=== PATIENT | female | born 1955 | race Hispanic/Latino ===

== ENCOUNTER 2018-06-02 17:54 | Emergency (ER) | payer SELFPAY ==
[2018-06-02] MEDS ORDERED: IPRATROPIUM BROM 0.5MG/2.5ML ONE (18:18)
[2018-06-02] MEDS ORDERED: ALBUTEROL 2.5 MG/3 ML NEB SOL ONE ×2 (18:18→19:30)
[2018-06-02] MEDS ORDERED: HYDROCODONE/CHLORPHEN 5 ML/OSYR ONE (18:23)
--- NOTE | 2018-06-02 19:16 | RAD REPORT ---
EXAM DESCRIPTION: [facility] Pa And Lat (2 Views)06/02/2018 7:09 pm CLINICAL HISTORY: Cough COMPARISON: 2014 FINDINGS: Mild reticulonodular opacities are suspected within the left lower lobe. The right lung ap pears clear. . The heart is normal size IMPRESSION: Mild reticulonodular opacities suspected within the left lower lobe may indicate an atyp ical infection
--- NOTE | 2018-06-02 20:29 | EDPHYS ---
Physician Documentation [facility] Name: Bernadette Abrams Age: 62 yrs Sex: Female : 1955 Arrival Date: 06/02/2018 Time: 17:58 Bed 17 Private MD: ED Physician Hussein Lowe HPI: 06/02 19:00 This 62 yrs old Female presents to ER via Ambulatory with complaints of Cough, pm1 Vomiting, Breathing Difficulty. 19:00 The patient or guardian reports cough, with productive sputum, Clear. Onset: The pm1 symptoms/episode began/occurred yesterday. Associated signs and symptoms: Pertinent positives: posttussive vomiting, Pertinent negatives: chest pain, ear ache, fever, nausea, rhinorrhea, sore throat, vomiting. The patient has not experienced similar symptoms in the past. The patient has not recently seen a physician. Patient with onset of cough yesterday. Patient reports coughing episodes that cause her to occasionally vomit. Patient with complaints of some shortness of breath. Patient smokes. 45 year history of smoking. No fever. No chest pain. Historical: - Allergies: 18:05 No Known Allergies; aj - Home Meds: 18:05 None [Active]; aj - PMHx: 18:05 Hypertension; aj - PSHx: 18:05 Cholecystectomy; aj - Immunization history:: Adult Immunizations up to date. - Social history:: Smoking status: Patient uses tobacco products, denies chronic smoking, but will smoke occasionally, Patient uses alcohol, only on a social basis. - Ebola Screening: : Patient negative for fever greater than or equal to 101.5 degrees Fahrenheit, and additional compatible Ebola Virus Disease symptoms Patient denies exposure to infectious person Patient denies travel to an Ebola-affected area in the 21 days before illness onset No symptoms or risks identified at this time. ROS: 19:00 Constitutional: Negative for fever, chills, and weight loss, Eyes: Negative for injury, pm1 pain, redness, and discharge, ENT: Negative for injury, pain, and discharge, Neck: Negative for injury, pain, and swelling, Cardiovascular: Negative for chest pain, palpitations, and edema. 19:00 Abdomen/GI: Negative for abdominal pain, nausea, vomiting, diarrhea, and constipation, Back: Negative for injury and pain, : Negative for injury, bleeding, discharge, and swelling, MS/Extremity: Negative for injury and deformity, Skin: Negative for injury, rash, and discoloration. 19:00 Neuro: Negative for headache, weakness, numbness, tingling, and seizure. 19:00 Respiratory: Positive for cough, with clear sputum, shortness of breath, Negative for wheezing. Exam: 19:00 Constitutional: This is a well developed, well nourished patient who is awake, alert, pm1 and in no acute distress. Head/Face: Normocephalic, atraumatic. Eyes: Pupils equal round and reactive to light, extra-ocular motions intact. Lids and lashes normal. Conjunctiva and sclera are non-icteric and not injected. Cornea within normal limits. Periorbital areas with no swelling, redness, or edema. ENT: Nares patent. No nasal discharge, no septal abnormalities noted. Tympanic membranes are normal and external auditory canals are clear. Oropharynx with no redness, swelling, or masses, exudates, or evidence of obstruction, uvula midline. Mucous membranes moist. Neck: Trachea midline, no thyromegaly or masses palpated, and no cervical lymphadenopathy. Supple, full range of motion without nuchal rigidity, or vertebral point tenderness. No Meningismus. Chest/axilla: Normal chest wall appearance and motion. Nontender with no deformity. No lesions are appreciated. Cardiovascular: Regular rate and rhythm with a normal S1 and S2. No gallops, murmurs, or rubs. Normal PMI, no JVD. No pulse deficits. 19:00 Abdomen/GI: Soft, non-tender, with normal bowel sounds. No distension or tympany. No guarding or rebound. No evidence of tenderness throughout. Back: No spinal tenderness. No costovertebral tenderness. Full range of motion. Skin: Warm, dry with normal turgor. Normal color with no rashes, no lesions, and no evidence of cellulitis. MS/ Extremity: Pulses equal, no cyanosis. Neurovascular intact. Full, normal range of motion. 19:00 Respiratory: the patient does not display signs of respiratory distress, Respirations: normal, Breath sounds: bronchial sounds, that are mild. 19:00 Neuro: Orientation: is normal, Motor: moves all fours. Vital Signs: 18:05 BP 180 / 92; Pulse 84; Resp 20; Temp 98.8; Pulse Ox 95% on R/A; Weight 90.26 kg; Height aj 5 ft. 1 in. (154.94 cm); 19:16 BP 123 / 77; Pulse 94; Resp 18; Pulse Ox 93% on R/A; Pain 0/10; mg2 20:28 BP 124 / 76; Pulse 88; Resp 18; Pulse Ox 91% on R/A; Pain 0/10; mg2 20:44 BP 128 / 77; Pulse 89; Resp 18; Temp 98.9; Pulse Ox 95% on R/A; Pain 0/10; mg2 18:05 Body Mass Index 37.60 (90.26 kg, 154.94 cm) aj MDM: 17:59 Patient medically screened. pm1 20:21 ED course: Monitoring patient's oxygen saturation and they are running between 93-95%. pm1 Patient with 45 year history of smoking. Patient's shortness of breath resolved with treatments and patient feels better with the medications given in the ER. Possibly patient's baseline with underlying undiagnosed COPD. Offered lab work and admission to the patient. Patient does not want the lab work and to be hospitalized. Therefore I will give the patient antibiotics in the ER and discharge home with antibiotics and breathing treatment. Patient educated on return precautions. 21:00 Data reviewed: vital signs. Data interpreted: Pulse oximetry: on room air is 95 %. pm1 Interpretation: normal. Counseling: I had a detailed discussion with the patient and/or guardian regarding: the historical points, exam findings, and any diagnostic results supporting the discharge/admit diagnosis, radiology results, the need for outpatient follow up, to return to the emergency department if symptoms worsen or persist or if there are any questions or concerns that arise at home. 06/02 18:16 Order name: Chest Pa And Lat (2 Views) XRAY; Complete Time: 19:19 pm1 Administered Medications: 18:17 Drug: AtroVENT Aerosol 0.5 mg Route: Inhalation; mg2 20:44 Follow up: Response: No adverse reaction; Marked relief of symptoms mg2 18:17 Drug: Albuterol 2.5 mg Route: Inhalation; mg2 20:43 Follow up: Response: No adverse reaction; Marked relief of symptoms mg2 18:21 Drug: Tussionex Pennkinetic ER 5 ml Route: PO; mg2 20:43 Follow up: Response: No adverse reaction; Marked relief of symptoms mg2 19:33 Drug: Albuterol 2.5 mg Route: Inhalation; mg2 20:43 Follow up: Response: No adverse reaction; Marked relief of symptoms mg2 20:43 Drug: Rocephin (cefTRIAXone) 1 grams Route: IM; Site: right gluteus; mg2 20:44 Follow up: Response: No adverse reaction; Medication administered at discharge. mg2 20:43 Drug: AZITHromycin 500 mg Route: PO; mg2 20:44 Follow up: Response: No adverse reaction; Medication administered at discharge. mg2 Disposition: 06/02/18 20:29 Discharged to Home. Impression: Pneumonia, unspecified organism. - Condition is Stable. - Discharge Instructions: Community-Acquired Pneumonia, Adult. - Prescriptions for Zithromax Z- Ghulam 250 mg Oral Tablet - take 1 tablet by ORAL route as directed for 5 days Day 1 - take two (2) tablets one time. Day 2, 3, 4 , 5 take one (1) tablet once daily.; 6 tablet. Albuterol Sulfate 90 mcg/actuation - inhale 1-2 puff by INHALATION route every 4-6 hours; 1 Inhaler. Guaifenesin AC 10- 100 mg/5 mL Oral Liquid - take 10 milliliter by ORAL route every 4 hours As needed; 240 milliliter. Augmentin 875- 125 mg Oral Tablet - take 1 tablet by ORAL route every 12 hours for 10 days; 20 tablet. - Medication Reconciliation Form, Thank You Letter, Antibiotic Education, Prescription Opioid Use form. - Follow up: Emergency Department; When: As needed; Reason: Worsening of condition. Follow up: Private Physician; When: 2 - 3 days; Reason: Recheck today's complaints, Continuance of care, Re-evaluation by your physician. - Problem is new. - Symptoms have improved. Addendum: 06/06/2018 01:57 Co-signature as Attending Physician, Hussein Lowe MD. r n Signatures: Dispatcher [employer] Karlee Marin RN RN aj Nieto, Roman, MD MD rn Marinas, Patrick, [employer] pm1 Ronnie Green RN RN mg2 Corrections: (The following items were deleted from the chart) 06/02 20:48 20:29 06/02/2018 20:29 Discharged to Home. Impression: Pneumonia, unspecified organism. mg2 Condition is Stable. Forms are Medication Reconciliation Form, Thank You Letter, Antibiotic Education, Prescription Opioid Use. Follow up: Emergency Department; When: As needed; Reason: Worsening of condition. Follow up: Private Physician; When: 2 - 3 days; Reason: Recheck today's complaints, Continuance of care, Re-evaluation by your physician. Problem is new. Symptoms have improved. pm1
--- NOTE | 2018-06-02 20:29 | ER ---
Nurse's Notes [facility] Name: Bernadette Abrams Age: 62 yrs Sex: Female : 1955 Arrival Date: 06/02/2018 Time: 17:58 Bed 17 Private MD: Diagnosis: Pneumonia, unspecified organism Presentation: 06/02 18:03 Presenting complaint: Patient states: Cough since last night, causing vomiting. Patient aj reports taking Tylenol cold at 1200 today. Transition of care: patient was not received from another setting of care. Onset of symptoms was June 01, 2018. Risk Assessment: Do you want to hurt yourself or someone else? Patient reports no desire to harm self or others. Initial Sepsis Screen: Does the patient meet any 2 criteria? No. Patient's initial sepsis screen is negative. Does the patient have a suspected source of infection? No. Patient's initial sepsis screen is negative. Care prior to arrival: None. 18:03 Method Of Arrival: Ambulatory aj 18:03 Acuity: ESTEPHANIA 4 aj Triage Assessment: 18:05 General: Appears in no apparent distress. ill, Behavior is calm, cooperative, aj appropriate for age. Pain: Denies pain. Neuro: Level of Consciousness is awake, alert, obeys commands, Oriented to person, place, time, situation, Appropriate for age. Respiratory: Reports cough that is persistent causes vomiting Airway is patent Respiratory effort is even, unlabored, Respiratory pattern is regular, symmetrical. GI: Reports vomiting with cough. Derm: Skin is intact, is healthy with good turgor, Skin is pink, warm \T\ dry. normal. Historical: - Allergies: 18:05 No Known Allergies; aj - Home Meds: 18:05 None [Active]; aj - PMHx: 18:05 Hypertension; aj - PSHx: 18:05 Cholecystectomy; aj - Immunization history:: Adult Immunizations up to date. - Social history:: Smoking status: Patient uses tobacco products, denies chronic smoking, but will smoke occasionally, Patient uses alcohol, only on a social basis. - Ebola Screening: : Patient negative for fever greater than or equal to 101.5 degrees Fahrenheit, and additional compatible Ebola Virus Disease symptoms Patient denies exposure to infectious person Patient denies travel to an Ebola-affected area in the 21 days before illness onset No symptoms or risks identified at this time. Screenin:24 Abuse screen: Denies threats or abuse. Denies injuries from another. Nutritional mg2 screening: No deficits noted. Tuberculosis screening: No symptoms or risk factors identified. Fall Risk None identified. Assessment: 18:25 General: Appears in no apparent distress. uncomfortable, Behavior is calm, cooperative. mg2 Pain: Denies pain. Neuro: Level of Consciousness is awake, alert, obeys commands, Oriented to person, place, time, situation. Cardiovascular: Capillary refill < 3 seconds Patient's skin is warm and dry. Respiratory: Reports cough that is productive, Airway is patent Respiratory effort is even, unlabored, Respiratory pattern is regular, symmetrical. GI: No signs and/or symptoms were reported involving the gastrointestinal system. : No signs and/or symptoms were reported regarding the genitourinary system. EENT: No signs and/or symptoms were reported regarding the EENT system. Derm: Skin is intact, Skin is pink, warm \T\ dry. normal. Musculoskeletal: Circulation, motion, and sensation intact. Vital Signs: 18:05 BP 180 / 92; Pulse 84; Resp 20; Temp 98.8; Pulse Ox 95% on R/A; Weight 90.26 kg; Height aj 5 ft. 1 in. (154.94 cm); 19:16 BP 123 / 77; Pulse 94; Resp 18; Pulse Ox 93% on R/A; Pain 0/10; mg2 20:28 BP 124 / 76; Pulse 88; Resp 18; Pulse Ox 91% on R/A; Pain 0/10; mg2 20:44 BP 128 / 77; Pulse 89; Resp 18; Temp 98.9; Pulse Ox 95% on R/A; Pain 0/10; mg2 18:05 Body Mass Index 37.60 (90.26 kg, 154.94 cm) ED Course: 17:58 Patient arrived in ED. mr 17:59 Ajith Casillas NP is PHCP. pm1 17:59 Hussein Lowe MD is Attending Physician. pm1 18:04 Triage completed. aj 18:05 Arm band placed on left wrist. Patient placed in an exam room. aj 18:16 Ronnie Green, RN is Primary Nurse. mg2 18:26 Patient has correct armband on for positive identification. Bed in low position. Call mg2 light in reach. Side rails up X 1. Pulse ox on. NIBP on. 19:08 X-ray completed. Patient tolerated procedure well. kp1 19:09 Chest Pa And Lat (2 Views) XRAY In Process Unspecified. EDMS 20:45 No provider procedures requiring assistance completed. Patient did not have IV access mg2 during this emergency room visit. Administered Medications: 18:17 Drug: AtroVENT Aerosol 0.5 mg Route: Inhalation; mg2 20:44 Follow up: Response: No adverse reaction; Marked relief of symptoms mg2 18:17 Drug: Albuterol 2.5 mg Route: Inhalation; mg2 20:43 Follow up: Response: No adverse reaction; Marked relief of symptoms mg2 18:21 Drug: Tussionex Pennkinetic ER 5 ml Route: PO; mg2 20:43 Follow up: Response: No adverse reaction; Marked relief of symptoms mg2 19:33 Drug: Albuterol 2.5 mg Route: Inhalation; mg2 20:43 Follow up: Response: No adverse reaction; Marked relief of symptoms mg2 20:43 Drug: Rocephin (cefTRIAXone) 1 grams Route: IM; Site: right gluteus; mg2 20:44 Follow up: Response: No adverse reaction; Medication administered at discharge. mg2 20:43 Drug: AZITHromycin 500 mg Route: PO; mg2 20:44 Follow up: Response: No adverse reaction; Medication administered at discharge. mg2 Outcome: 20:29 Discharge ordered by . pm1 20:45 Discharged to home ambulatory, with family. mg2 20:45 Condition: stable 20:45 Discharge instructions given to patient, family, Instructed on discharge instructions, follow up and referral plans. medication usage, Demonstrated understanding of instructions, follow-up care, medications, Prescriptions given X 4. 20:48 Patient left the ED. mg2 Signatures: Dispatcher [employer] EDKarlee Soria, Tavia Duval RN, Patrick, [employer] TECHNICIAN [employer] TECHNICIAN pm1 June Weiss kp1 Ronnie Green RN RN mg2
[2018-06-02] MEDS ORDERED: AZITHROMYCIN 250 MG TAB ONE (20:38)
[2018-06-02] MEDS ORDERED: CEFTRIAXONE 1000 MG/VIAL ONE (20:39)
[2018-06-02] MEDS ORDERED: WATER FOR INJ,STERILE 10 ML ONE (20:39)
== END 2018-06-02 20:48 | disposition home or self-care (01) ==
LOC: ER 17:54
DX: J18.9 Pneumonia, unspecified organism (principal); I10 Essential (primary) hypertension; Z72.0 Tobacco use
CPT/HCPCS: 71046; 96372; 99284

== ENCOUNTER 2021-06-02 15:01 | Inpatient (IN) | payer SELFPAY ==
[2021-06-02 17:17] LABS: Urine Blood Trace-intact (Negative); Urine Glucose Negative (Negative); Urine Protein 2+ (Negative)
[2021-06-02] MEDS ORDERED: CASIRIVIMAB/IMDEVIMAB 10 ML VIAL ONE (17:59)
[2021-06-02] MEDS ORDERED: NA CHLORIDE 0.9% 250 ML ONE (17:59)
[2021-06-02 18:16] LABS: Absolute Lymphocytes (CBC) 0.4 K/uL (0.7-4.9); Basophils % 0.4 % (0-1.3); Hematocrit 40.1 % (36.0-45.0); Lymphocytes % 7.4 % (15.3-44.8); MPV 8.7 fL (7.6-11.3); RBC Red Blood Cell Count 4.63 M/uL (3.86-4.86)
[2021-06-02 18:17] LABS: Protime INR 1.17
[2021-06-02] MEDS ORDERED: ONDANSETRON 4 MG/2 ML VIAL ONE (18:27)
[2021-06-02] MEDS ORDERED: METHYLPREDNISOLONE 125 MG INJ ONE (18:27)
[2021-06-02] MEDS ORDERED: ASPIRIN EC 81 MG TAB PO ONE (18:27)
[2021-06-02] MEDS ORDERED: IBUPROFEN 200 MG TAB PO ONE (18:27)
[2021-06-02] MEDS ORDERED: IBUPROFEN 400 MG TAB ONE (18:28)
[2021-06-02] MEDS ORDERED: NA CHLORIDE 0.9% 1,000 ML ONE (18:28)
[2021-06-02] MEDS ORDERED: FAMOTIDINE 20 MG/2 ML VIAL IV ONE (18:28)
[2021-06-02] MEDS ORDERED: AZITHROMYCIN 250 MG TAB ONE (18:28)
[2021-06-02 18:29] LABS: ALT/SGPT 33 U/L (12-78); AST/SGOT 28 U/L (15-37); Albumin 3.3 g/dL (3.4-5.0); Alkaline Phosphatase 80 U/L (45-117); BUN Blood Urea Nitrogen 12 mg/dL (7-18); Bicarbonate 26 mmol/L (21-32); Bilirubin Direct 0.3 mg/dL (0-0.2); Bilirubin Total 0.7 mg/dL (0.2-1.0); Ferritin 958.4 ng/mL (8-388); Glucose Level 97 mg/dL (74-106); Magnesium 2.3 mg/dL (1.8-2.4); NT PRO-BNP 138 pg/mL (<125); Protein, Total 8.2 g/dL (6.4-8.2); Sodium Level 122 mmol/L (136-145); Troponin (Emerg Dept Use Only) < 0.02 ng/mL (0.0-0.045)
[2021-06-02] MEDS ORDERED: ASPIRIN 81 MG CHEWABLE TABLET ONE (18:29)
--- NOTE | 2021-06-02 18:47 | EDPHYS ---
Physician Documentation [facility] Name: Bernadette Abrams Age: 65 yrs Sex: Female : 1955 Arrival Date: 06/02/2021 Time: 15:03 Bed 23 Private MD: ED Physician Danis Markham HPI: 06/02 17:25 This 65 yrs old Female presents to ER via Wheelchair with complaints of Fever, lisha chills. 17:25 The patient reports fever, that was measured at 100 degrees Fahrenheit. Onset: The lisha symptoms/episode began/occurred 8 day(s) ago. Modifying factors: there are no obvious modifying factors. Associated signs and symptoms: Pertinent positives: chills, cough, diarrhea. Severity of symptoms: At their worst the symptoms were mild in the emergency department the symptoms are unchanged. The patient has not experienced similar symptoms in the past. Historical: - Allergies: 16:02 No Known Allergies; kg - Home Meds: 16:02 None [Active]; kg - PMHx: 16:02 Hypertension; kg - PSHx: 16:02 Cholecystectomy; kg - Immunization history:: Adult Immunizations up to date, Client reports receiving the 1st dose of the Covid vaccine, May 20, 2021 Moderna. - Social history:: Smoking status: Patient reports the use of cigarette tobacco products, denies chronic smoking, but will smoke occasionally. ROS: 17:26 Eyes: Negative for injury, pain, redness, and discharge, ENT: Negative for injury, lisha pain, and discharge, Neck: Negative for injury, pain, and swelling, Cardiovascular: Negative for chest pain, palpitations, and edema, Abdomen/GI: Negative for abdominal pain, nausea, vomiting, diarrhea, and constipation, Back: Negative for injury and pain, : Negative for injury, bleeding, discharge, and swelling, MS/Extremity: Negative for injury and deformity, Skin: Negative for injury, rash, and discoloration, Neuro: Negative for headache, weakness, numbness, tingling, and seizure, Psych: Negative for depression, anxiety, suicide ideation, homicidal ideation, and hallucinations, Allergy/Immunology: Negative for hives, rash, and allergies, Endocrine: Negative for neck swelling, polydipsia, polyuria, polyphagia, and marked weight changes, Hematologic/Lymphatic: Negative for swollen nodes, abnormal bleeding, and unusual bruising. 17:26 Constitutional: Positive for fever. 17:26 Respiratory: Positive for cough, "sounds productive". 17:26 Abdomen/GI: Positive for LARGE VENTRAL HERNIA. Exam: 17:26 Head/Face: Normocephalic, atraumatic. Eyes: Pupils equal round and reactive to light, lisha extra-ocular motions intact. Lids and lashes normal. Conjunctiva and sclera are non-icteric and not injected. Cornea within normal limits. Periorbital areas with no swelling, redness, or edema. ENT: Nares patent. No nasal discharge, no septal abnormalities noted. Tympanic membranes are normal and external auditory canals are clear. Oropharynx with no redness, swelling, or masses, exudates, or evidence of obstruction, uvula midline. Mucous membranes moist. Neck: Trachea midline, no thyromegaly or masses palpated, and no cervical lymphadenopathy. Supple, full range of motion without nuchal rigidity, or vertebral point tenderness. No Meningismus. Chest/axilla: Normal chest wall appearance and motion. Nontender with no deformity. No lesions are appreciated. Cardiovascular: Regular rate and rhythm with a normal S1 and S2. No gallops, murmurs, or rubs. Normal PMI, no JVD. No pulse deficits. Back: No spinal tenderness. No costovertebral tenderness. Full range of motion. Female : Normal external genitalia. Skin: Warm, dry with normal turgor. Normal color with no rashes, no lesions, and no evidence of cellulitis. MS/ Extremity: Pulses equal, no cyanosis. Neurovascular intact. Full, normal range of motion. Neuro: Awake and alert, GCS 15, oriented to person, place, time, and situation. Cranial nerves II-XII grossly intact. Motor strength 5/5 in all extremities. Sensory grossly intact. Cerebellar exam normal. Normal gait. Psych: Awake, alert, with orientation to person, place and time. Behavior, mood, and affect are within normal limits. 17:26 Constitutional: The patient appears febrile. 17:26 Respiratory: the patient does not display signs of respiratory distress, Respirations: no acute changes, is not noted, Breath sounds: bronchial sounds, that are mild, rhonchi, that are mild, Respiratory rate: 96 Vital Signs: 16:01 BP 130 / 71; Pulse 96; Resp 20; Temp 99.8(O); Pulse Ox 96% on R/A; Weight 81.65 kg (R); kg Height 5 ft. 1 in. (154.94 cm) (R); Pain 0/10; 18:30 BP 103 / 57; Pulse 78; Resp 16; Pulse Ox 100% on R/A; zb 19:00 BP 97 / 62; Pulse 72; Resp 18; Pulse Ox 100% on R/A; zb 20:00 BP 103 / 50; Pulse 71; Resp 16; Pulse Ox 98% on R/A; zb 21:00 BP 104 / 58; Pulse 69; Resp 20; Pulse Ox 98% on R/A; zb 22:02 BP 105 / 70; Pulse 59; Resp 18; Pulse Ox 95% on R/A; zb 23:00 BP 105 / 67; Pulse 51; Resp 18; Pulse Ox 95% on R/A; zb 16:01 Body Mass Index 34.01 (81.65 kg, 154.94 cm) kg Zenon Coma Score: 17:26 Eye Response: spontaneous(4). Verbal Response: oriented(5). Motor Response: obeys lisha commands(6). Total: 15. MDM: 17:09 Patient medically screened. lisha 17:26 Differential diagnosis: viral Infection, bacterial infection, URI, bronchitis, lisha pneumonia UTI, gastroenteritis. Differential Diagnosis: Bronchitis Influenza Upper Respiratory Infection Pharyngitis Allergic Rhinitis Pneumonia. Data reviewed: vital signs, nurses notes, lab test result(s), EKG, radiologic studies, plain films. Data interpreted: satellite project site monitor: rate is 96 beats/min, rhythm is regular, Pulse oximetry: on room air. Test interpretation: by ED physician or midlevel provider: ECG, plain radiologic studies. Counseling: I had a detailed discussion with the patient and/or guardian regarding: the historical points, exam findings, and any diagnostic results supporting the discharge/admit diagnosis, lab results, radiology results. 06/02 16:06 Order name: Flu; Complete Time: 18:23 kg 06/02 17:17 Order name: Urine Dipstick-Ancillary; Complete Time: 18:23 EDMS 06/02 17:25 Order name: Basic Metabolic Panel lisha 06/02 17:25 Order name: CBC with Diff [facility] 06/02 17:25 Order name: LFT's lisha 06/02 17:25 Order name: Magnesium [facility] 06/02 17:25 Order name: NT PRO-BNP [facility] 06/02 17:25 Order name: PT-INR [facility] 06/02 17:25 Order name: Troponin (emerg Dept Use Only) [facility] 06/02 17:25 Order name: Blood Culture Adult (2) [facility] 06/02 17:25 Order name: CRP; Complete Time: 18:40 [facility] 06/02 17:25 Order name: Ferritin; Complete Time: 18:40 [facility] 06/02 17:25 Order name: Urine Culture [facility] 06/02 17:25 Order name: Basic Metabolic Panel; Complete Time: 18:40 EDKS 06/02 17:25 Order name: CBC with Automated Diff; Complete Time: 18:23 EDKS 06/02 17:25 Order name: Liver (Hepatic) Function; Complete Time: 18:40 EDKS 06/02 17:25 Order name: Magnesium; Complete Time: 18:40 EDKS 06/02 17:25 Order name: NT PRO-BNP; Complete Time: 18:40 EDKS 06/02 17:25 Order name: Protime (+INR); Complete Time: 18:23 EDKS 06/02 17:25 Order name: Troponin (Emerg Dept Use Only); Complete Time: 18:40 EDKS 06/02 17:36 Order name: SARS-COV-2 RT PCR; Complete Time: 18:23 EDKS 06/02 18:42 Order name: Urine Osmolality [facility] 06/02 18:42 Order name: Osmolality, Serum [facility] 06/02 18:42 Order name: Urine Sodium Random [facility] 06/02 18:43 Order name: Osmolality, Urine; Complete Time: 00:01 EDKS 06/02 18:43 Order name: Osmolality, Serum; Complete Time: 00:01 EDKS 06/02 18:43 Order name: UR SODIUM; Complete Time: 00:01 EDKS 06/02 18:43 Order name: Phosphorus [facility] 06/02 18:44 Order name: Phosphorus; Complete Time: 20:34 EDKS 06/02 17:25 Order name: XRAY Chest (1 view); Complete Time: 20:34 [facility] 06/02 17:25 Order name: EKG; Complete Time: 17:26 [facility] 06/02 17:25 Order name: Cardiac monitoring; Complete Time: 20:30 [facility] 06/02 17:25 Order name: EKG - Nurse/Tech; Complete Time: 20:30 [facility] 06/02 17:25 Order name: IV Saline Lock; Complete Time: 18:16 [facility] 06/02 17:25 Order name: Labs collected and sent; Complete Time: 18:16 [facility] 06/02 17:25 Order name: O2 Per Protocol; Complete Time: 18:17 [facility] 06/02 17:25 Order name: O2 Sat Monitoring; Complete Time: 18:17 [facility] 06/03 03:18 Order name: CBC with Automated Diff EDMS 06/03 03:24 Order name: D-Dimer EDMS 06/03 04:19 Order name: Comprehensive Metabolic Panel EDMS 06/03 04:19 Order name: Lipid Profile EDMS 06/03 04:19 Order name: C-Reactive Protein EDMS 06/03 04:19 Order name: T4 Free EDMS 06/03 04:19 Order name: Magnesium EDMS 06/03 04:19 Order name: Thyroid Stimulating Hormone EDMS 06/03 04:19 Order name: Ferritin EDMS 06/03 13:19 Order name: Gram Stain--Aerobic Bottle EDMS Administered Medications: 18:16 Drug: NS 0.9% 1000 ml Route: IV; Rate: 1 bolus; Site: right antecubital; 06/03 00:04 Follow up: Response: No adverse reaction; IV Status: Completed infusion; IV Intake: zb 1000ml 06/02 18:16 Drug: Pepcid (famotidine) 40 mg Route: IVP; Site: right antecubital; 06/03 00:04 Follow up: Response: No adverse reaction 06/02 18:16 Drug: Motrin (ibuprofen) 600 mg Route: PO; zb 06/03 00:04 Follow up: Response: No adverse reaction; Marked relief of symptoms z 06/02 18:16 Drug: Zofran (Ondansetron) 4 mg Route: IVP; Site: right antecubital; 06/03 00:02 Follow up: Response: No adverse reaction; Nausea is decreased z 06/02 18:16 Drug: Aspirin Chewable Tablet 324 mg Route: PO; 06/03 00:02 Follow up: Response: No adverse reaction 06/02 18:16 Drug: Zithromax (azithromycin) 500 mg Route: PO; zb 23:52 Follow up: Response: No adverse reaction zb 18:16 Drug: SOLU-Medrol (methylPrednisoLONE) 125 mg Route: IVP; Site: right antecubital; zb 23:51 Follow up: Response: No adverse reaction zb 18:40 Drug: REGEN-COV Dose Pack 120 mg/mL-120 mg/mL (EUA) 1 vials Route: IV; Rate: per iw protocol; Site: right antecubital; 19:16 Follow up: Response: No adverse reaction; IV Status: Completed infusion; IV Intake: zb 250ml 20:29 Drug: Rocephin (cefTRIAXone) 1 grams Route: IV; Rate: per protocol; Site: right zb antecubital; 23:51 Follow up: Response: No adverse reaction; IV Status: Completed infusion; IV Intake: 5ml zb 20:30 Drug: Potassium Effervescent Tablet 25 mEq Route: PO; zb 23:51 Follow up: Response: No adverse reaction zb 20:30 Drug: NS 0.9% with KCl 20 mEq/L 1000 ml Route: IV; Rate: 75 ml/hr; Site: right zb antecubital; 23:51 Follow up: Response: No adverse reaction; IV Status: Infusion continued upon admission; zb IV Intake: 225ml 06/03 00:53 Not Given (not available ): Phos-NaK Packet 280 mg-160 mg-250 mg 1 packets PO once em Disposition Summary: 06/02/21 18:46 Hospitalization Ordered Hospitalization Status: Inpatient Admission lisha Provider: Kaykay Page cha Condition: Fair lisha Problem: new lisha Symptoms: have improved lisha Bed/Room Type: Standard lisha Location: Telemetry/MedSurg (Inpatient)(06/03/21 18:42) dw Room Assignment: 415(06/03/21 18:42) dw Diagnosis - Weakness lisha - Essential (primary) hypertension lisha - Obesity, unspecified lisha - Coronavirus infection, unspecified lisha - Hypokalemia lisha - Hypo-osmolality and hyponatremia lisha - Fever, unspecified lisha - Pneumonia due to SARS-associated coronavirus lisha Discharge Instructions: - Discharge Summary Sheet lisha - Nausea and Vomiting, Adult, [id number] lisha - Viral Respiratory Infection, [id number] lisha - Aspirin and Your Heart lisha - Cough, Adult, [id number] lisha - Cough, Adult [facility] - COVID-19 [facility] - Vomiting, Adult [facility] Forms: - Medication Reconciliation Form [facility] - SBAR form [facility] Prescriptions: - ivermectin 3 mg Oral tablet - take 4 tablet by ORAL route once daily; 20 tablet; Refills: 0, Product [facility] Selection Permitted - Pepcid 20 mg Oral Tablet - take 1 tablet by ORAL route every 12 hours for 15 days; 30 tablet; Refills: 0, [facility] Product Selection Permitted - Zofran 4 mg Oral Tablet - take 1 tablet by ORAL route every 12 hours As needed; 20 tablet; Refills: 0, [facility] Product Selection Permitted - Prednisone 20 mg Oral Tablet - take 2 tablets by ORAL route once daily for 5 days; 12 tablet; Refills: 0, [facility] Product Selection Permitted - Zithromax 500 mg Oral Tablet - take 1 tablet by ORAL route once daily for 5 days; 5 tablet; Refills: 0, [facility] Product Selection Permitted Signatures: Dispatcher [employer] Laurie Finn RN RN dw Anderson, Corey, MD MD cha Williams, Irene, RN RN iw Dany Abbott, INDUSTRIAL ENGINEERING MANAGER-C INDUSTRIAL ENGINEERING MANAGER-[facility] Shadia Guzman RN RN cg Brown, Zipporah RN RN zShannan Du RN RN kg Charles Culp RN em Corrections: (The following items were deleted from the chart) 06/02 16:04 16:02 PSHx: None; kg kg 16:26 16:06 CORONAVIRUS+BRZ ordered. [facility] EDKS :23 18:46 Telemetry/MedSurg (Inpatient) [facility] : 18:46 [facility] 06/03 18:42 06/02 21:23 [facility] ER HOLD dw 06/03 18:42 06/02 21:23 [facility]- dw
--- NOTE | 2021-06-02 18:47 | ER ---
Nurse's Notes [facility] Name: Bernadette Abrams Age: 65 yrs Sex: Female : 1955 Arrival Date: 06/02/2021 Time: 15:03 Bed 23 Private MD: Diagnosis: Weakness;Essential (primary) hypertension;Obesity, unspecified;Coronavirus infection, unspecified;Hypokalemia;Hypo-osmolality and hyponatremia;Fever, unspecified;Pneumonia due to SARS-associated coronavirus Presentation: 06/02 16:01 Chief complaint: Patient states: Fever, nausea, vomiting x 8days. Coronavirus screen: kg Client denies travel out of the [place] in the last 14 days. At this time, unable to obtain information related to travel outside the [place] Client presents with at least one sign or symptom that may indicate coronavirus-19. Standard/surgical mask placed on the client. Provider contacted for isolation considerations. Ebola Screen: Patient negative for fever greater than or equal to 101.5 degrees Fahrenheit, and additional compatible Ebola Virus Disease symptoms Patient denies exposure to infectious person. Patient denies travel to an Ebola-affected area in the 21 days before illness onset. Initial Sepsis Screen: Does the patient meet any 2 criteria? No. Patient's initial sepsis screen is negative. Does the patient have a suspected source of infection? No. Patient's initial sepsis screen is negative. Risk Assessment: Do you want to hurt yourself or someone else? Patient reports no desire to harm self or others. Onset of symptoms was May 25, 2021. 16:01 Method Of Arrival: Wheelchair kg 16:01 Acuity: ESTEPHANIA 4 kg 17:06 Acuity: ESTEPHANIA 3 iw Triage Assessment: 16:02 General: Appears in no apparent distress. Behavior is calm, cooperative, appropriate kg for age, quiet. Pain: Denies pain. 16:02 GI: Reports diarrhea, nausea, vomiting. kg Historical: - Allergies: 16:02 No Known Allergies; kg - Home Meds: 16:02 None [Active]; kg - PMHx: 16:02 Hypertension; kg - PSHx: 16:02 Cholecystectomy; kg - Immunization history:: Adult Immunizations up to date, Client reports receiving the 1st dose of the Covid vaccine, May 20, 2021 Moderna. - Social history:: Smoking status: Patient reports the use of cigarette tobacco products, denies chronic smoking, but will smoke occasionally. Screenin:04 Abuse screen: Denies threats or abuse. Denies injuries from another. Nutritional kg screening: No deficits noted. Tuberculosis screening: No symptoms or risk factors identified. Fall Risk None identified. Assessment: 17:30 General: Appears in no apparent distress. uncomfortable, Behavior is calm, cooperative, zb appropriate for age, Reports fever for > 3 days, feeling ill for > 3 days, fatigue for >3 days. Pain: Denies pain. Neuro: Level of Consciousness is awake, alert, obeys commands, Oriented to person, place, time, situation, Moves all extremities. Full function Gait is steady, Speech is normal. Cardiovascular: Heart tones S1 S2 Patient's skin is warm and dry. Respiratory: Reports cough that is Breath sounds are diminished bilaterally. the patient has mild shortness of breath. GI: Reports nausea. Derm: Skin is intact, is healthy with good turgor, Skin is dry, Skin is normal. Musculoskeletal: Range of motion: intact in all extremities. Vital Signs: 16:01 BP 130 / 71; Pulse 96; Resp 20; Temp 99.8(O); Pulse Ox 96% on R/A; Weight 81.65 kg (R); kg Height 5 ft. 1 in. (154.94 cm) (R); Pain 0/10; 18:30 BP 103 / 57; Pulse 78; Resp 16; Pulse Ox 100% on R/A; zb 19:00 BP 97 / 62; Pulse 72; Resp 18; Pulse Ox 100% on R/A; zb 20:00 BP 103 / 50; Pulse 71; Resp 16; Pulse Ox 98% on R/A; zb 21:00 BP 104 / 58; Pulse 69; Resp 20; Pulse Ox 98% on R/A; zb 22:02 BP 105 / 70; Pulse 59; Resp 18; Pulse Ox 95% on R/A; zb 23:00 BP 105 / 67; Pulse 51; Resp 18; Pulse Ox 95% on R/A; zb 16:01 Body Mass Index 34.01 (81.65 kg, 154.94 cm) kg Zenon Coma Score: 17:26 Eye Response: spontaneous(4). Verbal Response: oriented(5). Motor Response: obeys lisha commands(6). Total: 15. ED Course: 15:03 Patient arrived in ED. as 16:02 Triage completed. kg 16:04 Patient has correct armband on for positive identification. kg 17:09 Danis Markham MD is Attending Physician. lisha 17:22 Martine Vee, SKYLAR is Primary Nurse. zb 18:31 XRAY Chest (1 view) In Process Unspecified. EDMS 18:44 Kaykay Page MD is Hospitalizing Provider. lisha 18:49 EKG done, by ED staff, reviewed by Danis Markham MD. mb4 20:00 Arm band placed on. zb 20:00 No provider procedures requiring assistance completed. Patient admitted, IV remains in zb place. Administered Medications: 18:16 Drug: NS 0.9% 1000 ml Route: IV; Rate: 1 bolus; Site: right antecubital; b 06/03 00:04 Follow up: Response: No adverse reaction; IV Status: Completed infusion; IV Intake: zb 1000ml 06/02 18:16 Drug: Pepcid (famotidine) 40 mg Route: IVP; Site: right antecubital; zb 06/03 00:04 Follow up: Response: No adverse reaction 06/02 18:16 Drug: Motrin (ibuprofen) 600 mg Route: PO; zb 06/03 00:04 Follow up: Response: No adverse reaction; Marked relief of symptoms 06/02 18:16 Drug: Zofran (Ondansetron) 4 mg Route: IVP; Site: right antecubital; zb 06/03 00:02 Follow up: Response: No adverse reaction; Nausea is decreased 06/02 18:16 Drug: Aspirin Chewable Tablet 324 mg Route: PO; zb 06/03 00:02 Follow up: Response: No adverse reaction b 06/02 18:16 Drug: Zithromax (azithromycin) 500 mg Route: PO; zb 23:52 Follow up: Response: No adverse reaction zb 18:16 Drug: SOLU-Medrol (methylPrednisoLONE) 125 mg Route: IVP; Site: right antecubital; zb 23:51 Follow up: Response: No adverse reaction zb 18:40 Drug: REGEN-COV Dose Pack 120 mg/mL-120 mg/mL (EUA) 1 vials Route: IV; Rate: per iw protocol; Site: right antecubital; 19:16 Follow up: Response: No adverse reaction; IV Status: Completed infusion; IV Intake: zb 250ml 20:29 Drug: Rocephin (cefTRIAXone) 1 grams Route: IV; Rate: per protocol; Site: right zb antecubital; 23:51 Follow up: Response: No adverse reaction; IV Status: Completed infusion; IV Intake: 5ml zb 20:30 Drug: Potassium Effervescent Tablet 25 mEq Route: PO; zb 23:51 Follow up: Response: No adverse reaction zb 20:30 Drug: NS 0.9% with KCl 20 mEq/L 1000 ml Route: IV; Rate: 75 ml/hr; Site: right zb antecubital; 23:51 Follow up: Response: No adverse reaction; IV Status: Infusion continued upon admission; zb IV Intake: 225ml 06/03 00:53 Not Given (not available ): Phos-NaK Packet 280 mg-160 mg-250 mg 1 packets PO once em Intake: 06/02 19:16 IV: 250ml; Total: 250ml. zb 23:51 IV: 5ml; Total: 255ml. zb 23:51 IV: 225ml; Total: 480ml. zb 06/03 00:04 IV: 1000ml; Total: 1480ml. zb Outcome: 06/02 18:46 Decision to Hospitalize by Provider. [facility] 23:50 Admitted to ER Hold. Please see [facility] for further documentation. zb 23:50 Condition: stable 23:50 Instructed on the need for admit. 06/03 19:23 Admitted to Med/surg accompanied by tech, via wheelchair, room 415, with chart, Report vg1 called to Jordan CHENG Condition: stable Instructed on the need for admit. 19:42 Patient left the ED. vg1 Signatures: Dispatcher [employer] Danis Espinoza MD MD cha Martinez, Amelia as Williams, Irene, RN RN iw Baxter, Mackenzie mb4 Beth Guzman RN RN vg1 Martine Vee RN RN zb Graham, Kristen, RN RN kg Munoz, Edgar RN em Corrections: (The following items were deleted from the chart) 06/02 16:04 16:02 PSHx: None; kg kg
--- NOTE | 2021-06-02 19:34 | P.HP ---
Certification for Inpatient Patient admitted to: Inpatient With expected LOS: >2 Midnights Patient will require the following post-hospital care: None Practitioner: I am a practitioner with admitting privileges, knowledge of patient current condition, hospital course, and medical plan of care. Services: Services provided to patient in accordance with Admission requirements found in Title 42 Section 412.3 of the Code of Federal Regulations <Dany Abbott - Last Filed: 06/02/21 19:31> Patient History Date of Service: 06/02/21 Reason for admission: Hyponatremia, COVID-19 pneumonia History of Present Illness: 65-year-old otherwise healthy female presents emerged department for shortness of breath, cough, fevers. Patient reports receiving 1 dose of moderna vaccine on May 20, patient tested positive for Covid today has had symptoms for about 8 days. Patient not hypoxic on room air, was given Regeneron in the emergency department as plan was for discharge home, patient's labs returned and revealed that she was hyponatremic with a sodium of 122 potassium 3.0 chloride 86 GFR 59 ferritin 958 C-reactive protein 189. Patient appears dehydrated, reports poor oral intake and appetite. Patient was started on normal saline at 75 cc/h, ED provider wishes to admit for further evaluation and management of h yponatremia, hypokalemia, COVID-19 pneumonia. - Past Medical/Surgical History -: None -: Cholecystectomy Psychosocial/ Personal History: Unemployed lives with family - Family History Brother -: Diabetes - Social History Smoking Status: Never smoker Alcohol use: No CD- Drugs: No Caffeine use: Yes Place of Residence: Home <Dany Abbott - Last Filed: 06/02/21 19:31> Date of Service: 06/10/21 <Kaykay Page - Last Filed: 06/10/21 02:28> Allergies No Known Drug Allergies Allergy (Verified 06/04/21 04:33) Unknown No Known Allergies Allergy (Uncoded 06/02/18 20:52) Unknown Review of Systems 10-point ROS is otherwise unremarkable General: Fever, Chills, Weakness, Malaise Respiratory: Cough, Dry, Shortness of Breath <Dany Abbott - Last Filed: 06/02/21 19:31> Physical Examination - Physical Exam General: Alert, In no apparent distress, Oriented x3 HEENT: Atraumatic, PERRLA, Other (Mucous membranes dry) Neck: Supple, 2+ carotid pulse no bruit, No LAD Respiratory: Diminished, Other (Tachypnea) Cardiovascular: Regular rate/rhythm, Normal S1 S2 Gastrointestinal: Normal bowel sounds, No tenderness Musculoskeletal: No tenderness Integumentary: No rashes Neurological: Normal speech, Normal strength at 5/5 x4 extr, Normal tone, Normal affect - Studies Laboratory Data (last 24 hrs) 06/02/21 17:58: PT 13.5 H, INR 1.17 06/02/21 17:58: WBC 5.40, Hgb 13.8, Hct 40.1, Plt Count 195 06/02/21 17:58: Sodium 122 L, Potassium 3.0 L, BUN 12, Creatinine 0.95, Glucose 97, Magnesium 2.3, Total Bilirubin 0.7, AST 28, ALT 33, Alkaline Phosphatase 80 Microbiology Data (last 24 hrs): 06/02/21 16:07 Nasopharnyx Influenza Type A Antigen Screen - Final 06/02/21 16:07 Nasopharnyx Influenza Type B Antigen Screen - Final <Dany Abbott - Last Filed: 06/02/21 19:31> Assessment and Plan - Plan Assessment: Hyponatremia Hypokalemia COVID-19 pneumonia Plan: Hyponatremia: Continue with normal saline at 75 cc/h, obtain urine sodium, urine osmolality, serum osmolality. Nephrology consult for additional assistance. Recheck chemistry in the morning. Hypokalemia: Potassium protocol in place. COVID-19 pneumonia: Patient received Regeneron in the emergency department, partially vaccinated. Continue with oral supplements, patient not hypoxic at this time will perform daily room air saturations and consult pulmonology. Hold off on steroids at this time given patient does not have oxygen requirement. Appreciate further input from pulmonology. DVT PPX: Lovenox Code status: Full Discharge Plan: Home Plan to discharge in: 48 Hours - Advance Directives Does patient have a Living Will: No Does patient have a Durable POA for Healthcare: No - Code Status/Comfort Care Code Status Assessed: Yes (Full code) Critical Care: No Time Spent Managing Pts Care (In Minutes): 55 <Dany Abbott - Last Filed: 06/02/21 19:31> - Problems (Diagnosis) (1) Hyponatremia Status: Acute (2) Pneumonia due to COVID-19 virus Status: Acute <Alexia Pageberenice Joe - Last Filed: 06/10/21 02:28> Date of Service: 06/02/21 Subjective Agree with plan of care as mentioned above Review of Systems 10-point ROS is otherwise unremarkable Physical Examination - Vital Signs Reviewed - Physical Exam General: Alert, In no apparent distress, Oriented x3 HEENT: Atraumatic, PERRLA, EOMI Neck: Supple, JVD not distended Respiratory: Diminished Cardiovascular: Regular rate/rhythm, Normal S1 S2, No murmurs Gastrointestinal: Normal bowel sounds, Soft and benign, Non-distended, No tenderness Musculoskeletal: No clubbing, No swelling, No tenderness Integumentary: No rashes Neurological: Normal speech, Normal tone, Normal affect Lymphatics: No axilla or inguinal lymphadenopathy - Studies Medications List Reviewed: Yes Assessment & Plan - Problems (Diagnosis) (1) Hyponatremia Status: Acute (2) Pneumonia due to COVID-19 virus Status: Acute - Plan Continue with plan of care as mentioned below: 1. Continue with IV steroids 2. Monitor inflammatory markers 3. Repeat chest x-ray is symptoms are progressively worsening 4. O2 per protocol 5. IV hydration with saline and repeat sodium level 6. Continue with albuterol inhaler therapy; also supportive care 7. Monitor LFTs 8. GI and DVT prophylaxis Discharge Plan: Home Plan to discharge in: Greater than 2 days - Advance Directives Does patient have a Living Will: No Does patient have a Durable POA for Healthcare: No <PageKaykay Diaz - Last Filed: 06/10/21 02:28>
--- NOTE | 2021-06-02 19:36 | RAD REPORT ---
EXAM DESCRIPTION: RAD - Chest Single View - 06/02/2021 6:31 pm CLINICAL HISTORY: COUGH COMPARISON: Two chest May 2018 TECHNIQUE: AP portable chest image was obtained 06/02/2021 6:31 pm . FINDINGS: Bilateral airspace opacification present with relative sparing of each apex. In the [facility] clinical environment, bilateral COVID-19 pneumonia would be the primary consideration. Non COVID vi ral pneumonia is are also possible along with organizing pneumonia. Trachea is midline. Heart size is prominent. Pulmonary vasculature within normal limits. No measurabl e pleural effusion and no pneumothorax. No acute bony abnormality seen. No acute aortic findings susp ected. IMPRESSION: Moderate severity bilateral airspace opacities are present. In the current clinical environment, bilateral COVID-19 pneumonia would be the primary consideration.
[2021-06-02] MEDS ORDERED: POTASSIUM 25 MEQ EFFERV TAB ONE (20:40)
[2021-06-02] MEDS ORDERED: CEFTRIAXONE/SWI 1gm 1 GM/10 ML SYR ONE (20:40)
[2021-06-02] MEDS ORDERED: NS KCL 20MEQ 1,000 ML IV ONE (20:40)
[2021-06-03] MEDS ORDERED: ONDANSETRON 4 MG/2 ML VIAL IV PRN (00:54)
[2021-06-03] MEDS ORDERED: ACETAMINOPHEN 500 MG TAB PO PRN (00:54)
[2021-06-03] MEDS ORDERED: BENZONATATE 100 MG CAP PO PRN (00:54)
[2021-06-03] MEDS: ASCORBIC ACID 500 MG TABLET PO SCH ×5 (00:54→20:10)
[2021-06-03] MEDS: NA CHLORIDE 0.9% 1,000 ML IV SCH ×2 (00:54→13:45)
[2021-06-03 00:56] VITALS: BMI 34.0
[2021-06-03 03:05] LABS: Absolute Lymphocytes (CBC) 0.5 K/uL (0.7-4.9); Basophils % 0.3 % (0-1.3); Hematocrit 34.8 % (36.0-45.0); Lymphocytes % 12.7 % (15.3-44.8); MPV 8.9 fL (7.6-11.3); RBC Red Blood Cell Count 4.05 M/uL (3.86-4.86)
[2021-06-03 04:13] LABS: Albumin 2.8 g/dL (3.4-5.0); Bilirubin Total 0.5 mg/dL (0.2-1.0); Ferritin 976.3 ng/mL (8-388); Magnesium 2.6 mg/dL (1.8-2.4); Potassium 4.1 mmol/L (3.5-5.1); Protein, Total 7.2 g/dL (6.4-8.2); Thyroid Stimulating Hormone 0.188 uIU/mL (0.360-3.740)
--- NOTE | 2021-06-03 06:10 | P.CNS ---
Date of Consult: 06/03/21 Reason for Consult: COVID penumonia Chief Complaint: Hyponatremia, COVID-19 pneumonia History of Present Illness: age 65 aw Poss COVID penumonia,symptomatic for 8 days, hyponatremic e abnormalities Allergies No Known Drug Allergies Allergy (Unverified 03/23/15 12:37) Unknown No Known Allergies Allergy (Uncoded 06/02/18 20:52) Unknown - Past Medical/Surgical History -: None -: Cholecystectomy Psychosocial/ Personal History: Unemployed lives with family - Family History Brother Medical History: Diabetes - Social History Smoking Status: Current some day smoker Alcohol use: No CD- Drugs: No Caffeine use: Yes Place of Residence: Home Review of Systems General: Weakness Respiratory: Shortness of Breath Physical Examination General: Alert, Oriented x3, Cooperative Laboratory Data (last 24 hrs) 06/02/21 17:58: Phosphorus 2.4 L 06/02/21 17:58: PT 13.5 H, INR 1.17 06/02/21 17:58: WBC 5.40, Hgb 13.8, Hct 40.1, Plt Count 195 06/02/21 17:58: Sodium 122 L, Potassium 3.0 L, BUN 12, Creatinine 0.95, Glucose 97, Magnesium 2.3, Total Bilirubin 0.7, AST 28, ALT 33, Alkaline Phosphatase 80 - Problems (1) Pneumonia due to COVID-19 virus Current Visit: Yes Status: Acute Plan: age 65 AW COVID penumonia/ O2 satisfactory hyponatremia improving/ oxygneation satisfac/ plan for discharge today
[2021-06-03] MEDS: ENOXAPARIN 40 MG/0.4 ML SQ SCH (09:00)
[2021-06-03] MEDS: VITAMIN D 1000 UNIT TAB PO SCH (09:00)
[2021-06-03] MEDS: ZINC SULFATE 220 MG CAP PO SCH (09:00)
[2021-06-03] MEDS: THIAMINE HCL 100 MG TABLET PO SCH (09:00)
[2021-06-03] MEDS: ASPIRIN EC 81 MG TAB PO SCH (09:30)
[2021-06-03] MEDS ORDERED: ASCORBIC ACID 500 MG TABLET ONE ×3 (09:45→17:29)
[2021-06-03] MEDS ORDERED: ENOXAPARIN 40 MG/0.4 ML SQ ONE (09:46)
[2021-06-03] MEDS ORDERED: ZINC SULFATE 220 MG CAP ONE (09:46)
[2021-06-03] MEDS ORDERED: ASPIRIN EC 81 MG TAB PO ONE (09:46)
[2021-06-03] MEDS ORDERED: THIAMINE HCL 100 MG TABLET ONE (10:58)
[2021-06-03] MEDS ORDERED: VITAMIN D 1000 UNIT TAB ONE (10:58)
[2021-06-03] MEDS ORDERED: NA CHLORIDE 0.9% 1,000 ML ONE (14:02)
[2021-06-03] MEDS ORDERED: ACETAMINOPHEN 500 MG TAB ONE (16:04)
--- NOTE | 2021-06-03 22:59 | P.CNS ---
Chief Complaint: Hyponatremia, COVID-19 pneumonia History of Present Illness: Pt is a 65 y/o female with past medical hx of hypertension presented with complaints of weakness, fatigue without hypoxia or subjective shortness of breath was found to be covid posuive and recieved rengeron. Labs did reveal hyponatremia with clinical appearance of dehydration. Pt has been admitted for continued evaluation and management of hyponatremia. Allergies No Known Drug Allergies Allergy (Unverified 03/23/15 12:37) Unknown No Known Allergies Allergy (Uncoded 06/02/18 20:52) Unknown - Past Medical/Surgical History -: None -: Cholecystectomy Psychosocial/ Personal History: Unemployed lives with family - Family History Brother Medical History: Diabetes - Social History Smoking Status: Current some day smoker Alcohol use: No CD- Drugs: No Caffeine use: Yes Place of Residence: Home Physical Examination Temp Pulse Resp BP Pulse Ox 96.9 F 57 16 134/68 92 06/03/21 20:00 06/03/21 20:00 06/03/21 20:00 06/03/21 20:00 06/03/21 20:00 Conclusions/Impression: Problems Patel virus positive Hyponatremia Weakness, adn fatigue from disease process and hyponatremia Hypertension Plan Agree with continued hydration with LR @75cc/h Monitor for overcorrection. So far appopriate correction in 24hr-->129 Encourage oral nutrition Strict i/o Covid management per primary team. Will continue to follow.
[2021-06-04] MEDS: NA CHLORIDE 0.9% 1,000 ML IV SCH (03:38)
[2021-06-04 05:56] LABS: Absolute Lymphocytes (CBC) 0.9 K/uL (0.7-4.9); Basophils % 0.1 % (0-1.3); Hematocrit 34.1 % (36.0-45.0); Lymphocytes % 22.7 % (15.3-44.8); MPV 8.9 fL (7.6-11.3); RBC Red Blood Cell Count 3.89 M/uL (3.86-4.86)
[2021-06-04 06:27] LABS: Albumin 2.6 g/dL (3.4-5.0); Bilirubin Total 0.5 mg/dL (0.2-1.0); C-Reactive Protein 71.4 mg/L (<3.00); Ferritin 941.9 ng/mL (8-388); Magnesium 2.6 mg/dL (1.8-2.4); Potassium 3.6 mmol/L (3.5-5.1); Protein, Total 6.4 g/dL (6.4-8.2)
[2021-06-04] MEDS: ENOXAPARIN 40 MG/0.4 ML SQ SCH (08:13)
[2021-06-04] MEDS: ASCORBIC ACID 500 MG TABLET PO SCH ×2 (08:14→11:59)
[2021-06-04] MEDS: VITAMIN D 1000 UNIT TAB PO SCH (08:14)
[2021-06-04] MEDS: THIAMINE HCL 100 MG TABLET PO SCH (08:14)
[2021-06-04] MEDS: ASPIRIN EC 81 MG TAB PO SCH (08:14)
[2021-06-04] MEDS: ZINC SULFATE 220 MG CAP PO SCH (08:14)
[2021-06-04 11:04] VITALS: O2SAT 97
[2021-06-04 16:38] VITALS: BP 128/72; TEMP 97.7
--- NOTE | 2021-06-10 02:28 | P.PN ---
Subjective Date of Service: 06/03/21 Subjective: No new changes, No C/O voiced, Improving Patient clinically is improving with no new complaints. Review of Systems 10-point ROS is otherwise unremarkable Physical Examination - Vital Signs Temperature: 97.7 F Blood Pressure: 128/72 Pulse: 50 Respirations: 15 Pulse Ox (%): 94 - Physical Exam General: Alert, In no apparent distress, Oriented x3 HEENT: Atraumatic, PERRLA, EOMI Neck: Supple, JVD not distended Respiratory: Diminished Cardiovascular: Regular rate/rhythm, Normal S1 S2, No murmurs Gastrointestinal: Normal bowel sounds, Soft and benign, Non-distended, No tenderness Musculoskeletal: No clubbing, No swelling, No tenderness Integumentary: No rashes Neurological: Normal speech, Normal tone, Normal affect Lymphatics: No axilla or inguinal lymphadenopathy - Studies Medications List Reviewed: Yes Assessment & Plan - Problems (Diagnosis) (1) Hyponatremia Status: Acute (2) Pneumonia due to COVID-19 virus Status: Acute - Plan 1. Continue with IV steroids 2. Monitor inflammatory markers 3. Repeat chest x-ray is symptoms are progressively worsening 4. O2 per protocol 5. Pulmonary consultation 6. Continue with albuterol inhaler therapy; also supportive care 7. Monitor LFTs 8. GI and DVT prophylaxis Discharge Plan: Home Plan to discharge in: Greater than 2 days - Advance Directives Does patient have a Living Will: No Does patient have a Durable POA for Healthcare: No
--- NOTE | 2021-06-10 02:30 | P.DS ---
Discharge Date: 06/04/21 Disposition: ROUTINE DISCHARGE Discharge Condition: GOOD Reason for Admission: Hyponatremia, COVID-19 pneumonia - Problems (1) Hyponatremia Status: Acute (2) Pneumonia due to COVID-19 virus Status: Acute Brief History of Present Illness: 65-year-old otherwise healthy female presents emerged department for shortness of breath, cough, fevers. Patient reports receiving 1 dose of moderna vaccine on May 20, patient tested positive for Covid today has had symptoms for about 8 days. Patient not hypoxic on room air, was given Regeneron in the emergency department as plan was for discharge home, patient's labs returned and revealed that she was hyponatremic with a sodium of 122 potassium 3.0 chloride 86 GFR 59 ferritin 958 C-reactive protein 189. Patient appears dehydrated, reports poor oral intake and appetite. Patient was started on normal saline at 75 cc/h, ED provider wishes to admit for further evaluation and management of hyponatremia, hypokalemia, COVID-19 pneumonia. Hospital Course: Patient is a well clinically. Patient is doing much better and sodium is corrected. Respiratory status is stable. At this time, patient is stable for discharge home. Vital Signs/Physical Exam: Temp Pulse Resp BP Pulse Ox 97.7 F 50 15 128/72 94 06/10/21 02:27 06/10/21 02:27 06/10/21 02:27 06/10/21 02:27 06/10/21 02:27 General: Alert, In no apparent distress, Oriented x3 Laboratory Data at Discharge: WBC 3.80 K/uL (4.3-10.9) L 06/04/21 05:30 Hgb 11.9 g/dL (12.0-15.0) L 06/04/21 05:30 Hct 34.1 % (36.0-45.0) L 06/04/21 05:30 Plt Count 214 K/uL (152-406) 06/04/21 05:30 PT 13.5 SECONDS (9.5-12.5) H 06/02/21 17:58 INR 1.17 06/02/21 17:58 Sodium 135 mmol/L (136-145) L 06/04/21 05:30 Potassium 3.6 mmol/L (3.5-5.1) 06/04/21 05:30 BUN 12 mg/dL (7-18) 06/04/21 05:30 Creatinine 0.71 mg/dL (0.55-1.3) 06/04/21 05:30 Glucose 93 mg/dL (74-106) 06/04/21 05:30 Phosphorus 2.4 mg/dL (2.5-4.9) L 06/02/21 17:58 Magnesium 2.6 mg/dL (1.8-2.4) H 06/04/21 05:30 Total Bilirubin 0.5 mg/dL (0.2-1.0) 06/04/21 05:30 AST 20 U/L (15-37) 06/04/21 05:30 ALT 29 U/L (12-78) 06/04/21 05:30 Alkaline Phosphatase 57 U/L (45-117) 06/04/21 05:30 Triglycerides 94 mg/dL (<150) 06/03/21 02:08 Cholesterol 141 mg/dL (<200) 06/03/21 02:08 HDL Cholesterol 31 mg/dL (40-60) L 06/03/21 02:08 Cholesterol/HDL Ratio 4.55 06/03/21 02:08 Home Medications: Albuterol Inhaler [Ventolin Inhaler*] 2 puff IH Q6H PRN #1 hfa.aer.ad 06/04/21 Apixaban [Eliquis] 5 mg PO BID #30 tablet 06/04/21 Ascorbic Acid [Vitamin C*] 500 mg PO QID #120 tablet 06/04/21 Benzonatate [Tessalon Perle*] 100 mg PO TID PRN #30 cap 06/04/21 Thiamine HCl [Vitamin B-1*] 100 mg PO DAILY #30 tablet 06/04/21 Zinc Sulfate [Zinc Sulfate*] 220 mg PO DAILY #30 cap 06/04/21 predniSONE [Prednisone] 20 mg PO BID #20 tablet 06/04/21 New Medications: Apixaban [Eliquis] 5 mg PO BID #30 tablet predniSONE [Prednisone] 20 mg PO BID #20 tablet Benzonatate [Tessalon Perle*] 100 mg PO TID PRN #30 cap PRN Reason: Cough Albuterol Inhaler [Ventolin Inhaler*] 2 puff IH Q6H PRN #1 hfa.aer.ad PRN Reason: Shortness Of Breath Thiamine HCl [Vitamin B-1*] 100 mg PO DAILY #30 tablet Ascorbic Acid [Vitamin C*] 500 mg PO QID #120 tablet Zinc Sulfate [Zinc Sulfate*] 220 mg PO DAILY #30 cap Physician Discharge Instructions: OK TO DC IV AND DC HOME FOLLOW-UP WITH PRIMARY CARE PROVIDER IN 1-2 WEEKS FOLLOW-UP WITH Pulmonary IN 1-2 WEEKS RETURN TO THE ER IF symptoms worsen CALL or TEXT DR. CHÁVEZ AT [phone] IF ANY QUESTIONS REGARDING HOSPITAL STAY. PLEASE CALL THE FLOOR AT [phone] IF ANY MEDICATION OR NURSING QUESTIONS. Diet: Renal Activity: Fall precautions Followup: NONE,NONE [Primary Care Provider] - Time spent managing pt's care (in minutes): 35
== END 2021-06-04 16:25 | disposition home or self-care (01) | DRG 640 ==
LOC: ER 15:01 → ERHOLD 19:29 → 4TH 06-03 19:34
PROVIDERS: ADMIT Hospitalist; ATTEND Hospitalist
DX: E87.1 Hypo-osmolality and hyponatremia (principal); U07.1 COVID-19; J12.82 Pneumonia due to coronavirus disease 2019; E87.6 Hypokalemia; E86.0 Dehydration
CPT/HCPCS: 36415; 71045; 80048; 80053; 80061; 80076; 81003; 82728; 83735; 83880; 83930; 83935; 84100; 84300; 84439; 84443; 84484; 85025; 85379; 85610; 86140; 87040; 87077; 87086; 87088; 87186; 87205; 87804; 93005; 96361; 96365; 96366; 96367; 96375; 99285; J0696; J1650; J2405; J2930; J3480; J7030; J7050; U0003